=== PATIENT | male | born 1960 | race Caucasian/White ===

== ENCOUNTER 2016-11-02 20:55 | Emergency (ER) | payer OTHER ==
[~2016-11-02] VITALS: Ht 175.3 cm; Wt 79.1 kg
[~2016-11-02 20:55] MED LIST: CYAN500T PO; DIVA500T59 PO; MORP1CAP PO; MULT-506 PO; OMEP40CA PO; OXYC1TAB3 PO; PREG100C PO; VORT20TA PO
[2016-11-02 20:58] VITALS: TEMP 36.8; Ht 175.3 cm; Wt 79.1 kg
[2016-11-02] MEDS ORDERED: SODIUM CHLORIDE 0.9% 1000ML 1,000 ML IV ONE (21:47)
[2016-11-02] MEDS ORDERED: SODIUM CHLORIDE 0.9% 1000ML 1,000 ML IV STA (21:47)
[2016-11-02] MEDS ORDERED: HYDROmorphone INJ 1 MG/ML SYR IV STA ×2 (21:47→23:21)
[2016-11-02] MEDS ORDERED: ONDANSETRON INJ 2 MG/ML 2 ML VIAL IV STA (21:47)
--- NOTE | 2016-11-02 21:54 | EMERGENCY ROOM VISIT NOTE ---
History Report prepared by Dashawn: Lawrence Vasquez Under the Supervision of: Dr. Azael Alfredo M.D. First contact with patient: 21:32 Chief Complaint: CHEST PAIN Stated Complaint: CHEST PAIN Nursing Triage Summary: Triage Notes: chest pain in mid chest and down both arms since 8pm. History of Present Illness The patient is a 56 year old male who presents to the Emergency Room with complaints of persistent chest pain that started around an hour and a half ago. He says that he was just tinkering around in his garage when the pain came on. He says there was nothing running to cause smoke or gas in the area. The patient states that he has also been a bit short of breath, and it hurts to take a deep breath. He adds that he has been nauseous with some vomiting, abdominal pain, and headaches. The patient notes that he has had chest pain like this before, and has been worked up in the past, and has been checked out with no heart problems. The patient denies any anxiety issues or mental health issues currently. He also denies any fevers, chills, new back pain, or leg swelling. He adds that he blacked out and fell down a flight of stairs a week ago, and was taken by ambulance to the [place] [facility]. The patient says that he hurt his ankle and leg, but did not hurt his chest. The patient takes Morphine 3 times per days for chronic back pain. He has had stress tests done in the past. The patient does not take any blood thinners, and he has no history of blood clots. Source of History: patient Onset: An hour and a half ago Position: chest Timing: other (persistent) Associated Symptoms: + headache, + SOB, + nausea, + vomiting, + abdominal pain, No fevers, No chills, No back pain (no new) Note: Associated symptoms: Denies leg swelling. Review of Systems See HPI for pertinent positives & negatives. A total of 10 systems reviewed and were otherwise negative. Past Medical & Surgical Medical Problems: (1) Back pain (2) Chest pain radiating to arm (3) Foot fracture, right (4) Narcotic overdose (5) Neck pain Old medical records were reviewed. Nurse's notes were reviewed and I agree with. Family History Cancer Diabetes mellitus FH: heart disease FHx: lung disease Hypertension Social History Smoking Status: Never Smoker Alcohol Use: occasionally Drug Use: none Marital Status: single Occupation Status: disabled Current/Historical Medications Scheduled Cyanocobalamin (Vitamin B-12), 500 MCG PO DAILY Divalproex Sodium (Depakote), 500 MG PO DAILY Meloxicam (Mobic), 7.5 MG PO DAILY Morphine Sulfate (Elza Ext Rel), 100 MG PO Q6H Omeprazole (Prilosec), 40 MG PO DAILY Pregabalin (Lyrica), 100 MG PO TID Vortioxetine HBr (Brintellix), 20 MG PO DAILY Scheduled PRN Clonazepam (Klonopin), 0.5 MG PO BID PRN for Anxiety Oxycodone Ir (Roxicodone Ir), 10 MG PO TID PRN for Pain Allergies Coded Allergies: Gabapentin (Unverified Allergy, Mild, 12/21/15) Oxaprozin (Unverified Allergy, Mild, 12/21/15) Uncoded Allergies: DEXAPRO (Allergy, Mild, 09/10/06) Physical Exam Vital Signs Date Time Temp Pulse Resp B/P (MAP) Pulse Ox O2 Delivery O2 Flow Rate FiO2 11/02/16 23:52 60 18 163/108 98 11/02/16 22:00 162/110 11/02/16 21:59 169/114 11/02/16 21:55 65 15 99 11/02/16 21:53 64 20 98 Room Air 11/02/16 21:29 65 11/02/16 21:12 97 Room Air 11/02/16 20:58 36.8 64 20 177/103 94 Room Air Physical Exam General: Well developed well nourished mildly uncomfortable appearing middle aged male in no acute distress, breathing comfortably on room air. Normal speech HEENT: Normal cephalic atraumatic. Pupils are equal round and reactive to light. Extraocular movements are intact. Oropharynx is pink with moist mucous membranes. No swelling of the mouth lips or tongue. Neck: Supple with a midline trachea. No meningeal signs or stiffness, no JVD or bruits. No Stridor. Chest: Chest is reproducibly tender. Clear to auscultation bilaterally. No wheezes or rhonchi. No increased work of breathing. Heart: regular rate and rhythm. Abdomen: Reproducibly tender. Soft nondistended without rebound guarding or rigidity. Extremities: No cyanosis clubbing or edema. No calf tenderness or assymetry Spine/Back. Non tender to palpation. No CVA tenderness Skin: Good turgor without rashes. Neurologic exam: Cranial nerves two through 12 are intact. Motor and sensation are intact and symmetrical throughout. Medical Decision & Procedures ER Provider Diagnostic Interpretation: X-ray results as stated below per interpretation by me and the radiologist: CHEST ONE VIEW PORTABLE HISTORY: 56 years-old Male acute chest pain COMPARISON: Chest radiograph 01/12/2016 TECHNIQUE: Portable upright AP view of the chest FINDINGS: Cardiomediastinal and hilar silhouettes are within normal limits. There is no pneumothorax, pleural effusion or focal airspace consolidation. The bones are grossly intact. IMPRESSION: No acute cardiopulmonary process. The above report was generated using voice recognition software. It may contain grammatical, syntax or spelling errors. Electronically signed by: Tito Velasquez M.D. 11/02/2016 10:03 PM Dictated Date/Time: 11/02/2016 10:02 PM Laboratory Results 11/02/16 21:12 Red Blood Count 4.47, Mean Corpuscular Volume 85.0, Mean Corpuscular Hemoglobin 28.4, Mean Corpuscular Hemoglobin Concent 33.4, Mean Platelet Volume 11.1, Neutrophils (%) (Auto) 59.1, Lymphocytes (%) (Auto) 30.7, Monocytes (%) (Auto) 6.9, Eosinophils (%) (Auto) 2.7, Basophils (%) (Auto) 0.4, Neutrophils # (Auto) 3.33, Lymphocytes # (Auto) 1.73, Monocytes # (Auto) 0.39, Eosinophils # (Auto) 0.15, Basophils # (Auto) 0.02 11/02/16 21:12 Test 11/02/16 21:12 11/02/16 21:53 White Blood Count 5.63 K/uL (4.8-10.8) Red Blood Count 4.47 M/uL (4.7-6.1) Hemoglobin 12.7 g/dL (14.0-18.0) Hematocrit 38.0 % (42-52) Mean Corpuscular Volume 85.0 fL (80-100) Mean Corpuscular Hemoglobin 28.4 pg (25-34) Mean Corpuscular Hemoglobin Concent 33.4 g/dl (32-36) Platelet Count 207 K/uL (130-400) Mean Platelet Volume 11.1 fL (7.4-10.4) Neutrophils (%) (Auto) 59.1 % Lymphocytes (%) (Auto) 30.7 % Monocytes (%) (Auto) 6.9 % Eosinophils (%) (Auto) 2.7 % Basophils (%) (Auto) 0.4 % Neutrophils # (Auto) 3.33 K/uL (1.4-6.5) Lymphocytes # (Auto) 1.73 K/uL (1.2-3.4) Monocytes # (Auto) 0.39 K/uL (0.11-0.59) Eosinophils # (Auto) 0.15 K/uL (0-0.5) Basophils # (Auto) 0.02 K/uL (0-0.2) RDW Standard Deviation 42.4 fL (36.4-46.3) RDW Coefficient of Variation 13.8 % (11.5-14.5) Immature Granulocyte % (Auto) 0.2 % Immature Granulocyte # (Auto) 0.01 K/uL (0.00-0.02) Anion Gap 4.0 mmol/L (3-11) Est Creatinine Clear Calc Drug Dose 84.5 ml/min Estimated GFR () 98.5 Estimated GFR (Non- 84.9 BUN/Creatinine Ratio 8.8 (10-20) Calcium Level 8.5 mg/dl (8.5-10.1) Total Bilirubin 0.2 mg/dl (0.2-1) Direct Bilirubin < 0.1 mg/dl (0-0.2) Aspartate Amino Transf (AST/SGOT) 12 U/L (15-37) Alanine Aminotransferase (ALT/SGPT) 14 U/L (12-78) Alkaline Phosphatase 59 U/L (45-117) Total Creatine Kinase 79 U/L (39-308) Creatine Kinase MB 0.7 ng/ml (0.5-3.6) Creatine Kinase MB Ratio 0.9 (0-3.0) Troponin I < 0.015 ng/ml (0-0.045) Total Protein 7.1 gm/dl (6.4-8.2) Albumin 3.6 gm/dl (3.4-5.0) Lipase 222 U/L (73-393) Bedside Troponin I < 0.030 ng/ml (0-0.045) Laboratory studies as stated above per my review. Medications Administered Medications (Trade) Dose Ordered Sig/Topher Route Start Time Stop Time Status Last Admin Dose Admin Sodium Chloride 1,000 ml @ 999 mls/hr Q1H1M STAT IV 11/02/16 21:47 11/02/16 22:47 DC 11/02/16 22:00 999 MLS/HR Sodium Chloride 1,000 ml @ 150 mls/hr Q6H40M ONCE IV 11/02/16 21:47 11/03/16 04:26 11/02/16 22:09 150 MLS/HR Ondansetron HCl (Zofran Inj) 4 mg NOW STAT IV 11/02/16 21:47 11/02/16 21:49 DC 11/02/16 22:00 4 MG Hydromorphone HCl (Dilaudid Inj) 1 mg NOW STAT IV 11/02/16 21:47 11/02/16 21:49 DC 11/02/16 22:02 1 MG Hydromorphone HCl (Dilaudid Inj) 1 mg NOW STAT IV 11/02/16 23:21 11/02/16 23:23 DC 11/02/16 23:32 1 MG ECG Indication: chest pain Rate (beats per minute): 70 Rhythm: normal sinus Findings: no acute ischemic change, no ectopy, other (early repolarization) Comparison ECG Date: compared to January 12 2016, rate has increased ED Course 2140: Past medical records reviewed. The patient was evaluated in room A10, and a complete history and physical examination were performed. 2146: Ordered Dilaudid Inj 1 mg IV, Zofran Inj 4 mg IV, NSS 1000 ml @ 150 mls/ hr IV, NSS 1000 ml @ 999 mls/hr IV. 2: I reevaluated the patient and he is doing okay. He has had this pain for years but he wants another injection. I do not think his pain is cardiac. The patient verbally expressed understanding and agreement of the treatment plan. The patient will be discharged. 5: Ordered Dilaudid Inj 1 mg IV. Medical Decision Differentials include, but are not limited to; acute coronary syndrome, arrhythmia, pneumothorax, CHF, acute exacerbation of chronic pain. This patient comes in as described above. He was placed in room A 10. He's been having chest pain. I talked to him at length. He's been having chest pain off and on for years like this. He has some chronic pain issues. He tells me is a multiple stress testing cast which been unremarkable and never actually had cardiac disease. He is on high dosages of morphine at home. He is here from [place] . has not driving he has a friend who is driving. EKG was obtained does not suggest acute coronary syndrome or arrhythmia. He has no acute electrode metabolic abdomen was initially given Dilaudid 1 mg IV and Zofran 4 mg IV and seemed much more comfortable. He was still complaining that it hurts and was given additional dose of IV Dilaudid. Chest x-ray does not suggest congestive heart failure, pneumonia or pneumothorax. Cardiac enzymes are not elevated. I talked to him at length again this is been going on for years this feels no different from previous pain episodes. I do not think this is likely acute cardiac event and I do think he can be discharged home and follow up with his regular doctor. His blood pressure was moderately elevated which is most likely from pain but I told him follow-up with his regular doctor and have this rechecked when he is not having pain. He should return if: increasing pain, worsening of symptoms, fever or chills, any new problems or concerns. He is happy the plan and discharged to home. Medication Reconcilliation Current Medication List: was personally reviewed by me Blood Pressure Screening Patient's blood pressure: Elevated blood pressure Blood pressure disposition: Referred to PCP Impression Primary Impression: Precordial chest pain Scribe Attestation The scribe's documentation has been prepared under my direction and personally reviewed by me in its entirety. I confirm that the note above accurately reflects all work, treatment, procedures, and medical decision making performed by me. Departure Information Dispostion Home / Self-Care Referrals Jonas Cook MD (PCP) Patient Instructions My [facility] Additional Instructions Rest. Drink plenty of fluids. Return if: Increasing pain, worsening symptoms, shortness of breath, fever chills, any new problems or concerns. Follow-up with your doctor this week for recheck or return to ER any point if symptoms worsen
[2016-11-02 21:55] LABS: BASO % 0.4 %; BASO ABS # 0.02 K/uL (0-0.2); COMPLETE YES; EOS % 2.7 %; IG% 0.2 %; LYMPH % 30.7 %; LYMPH ABS # 1.73 K/uL (1.2-3.4); MEAN CORPUSCULAR HEMOGLOBIN 28.4 pg (25-34); MEAN CORPUSCULAR HGB CONC 33.4 g/dl (32-36); MEAN PLATELET VOLUME 11.1 fL (7.4-10.4); MONO % 6.9 %; NEUT % 59.1 %; PLATELET COUNT 207 K/uL (130-400); RED BLOOD COUNT 4.47 M/uL (4.7-6.1); WHITE BLOOD COUNT 5.63 K/uL (4.8-10.8)
[2016-11-02] MEDS ORDERED: OMEP40CA41 PO (21:56)
[2016-11-02] MEDS ORDERED: VORT20TA PO (21:56)
--- NOTE | 2016-11-02 22:04 | DIAGNOSTIC IMAGING REPORT ---
CHEST ONE VIEW PORTABLE HISTORY: 56 years-old Male acute chest pain COMPARISON: Chest radiograph 01/12/2016 TECHNIQUE: Portable upright AP view of the chest FINDINGS: Cardiomediastinal and hilar silhouettes are within normal limits. There is no pneumothorax, pleural effusion or focal airspace consolidation. The bones are grossly intact. IMPRESSION: No acute cardiopulmonary process. The above report was generated using voice recognition software. It may contain grammatical, syntax or spelling errors. Electronically signed by: Tito Velasquez M.D. 11/02/2016 10:03 PM Dictated Date/Time: 11/02/2016 10:02 PM
[2016-11-02 22:09] LABS: ALT/SGPT 14 U/L (12-78); BLOOD UREA NITROGEN 9 mg/dl (7-18); BUN/CREATININE RATIO 8.8 (10-20); CALCIUM 8.5 mg/dl (8.5-10.1); CARBON DIOXIDE 30 mmol/L (21-32); CHLORIDE 110 mmol/L (98-107); GLUCOSE 111 mg/dl (70-99); POTASSIUM 3.2 mmol/L (3.5-5.1); SODIUM 144 mmol/L (136-145)
[2016-11-02 22:15] LABS: ALKALINE PHOSPHATASE 59 U/L (45-117); AST/SGOT 12 U/L (15-37); CKMB/CK RATIO 0.9 (0-3.0)
[2016-11-02] MEDS ORDERED: CLON0.5T3 PO (22:53)
[2016-11-02] MEDS ORDERED: MELO7.5T5 PO (22:53)
[2016-11-02 23:52] VITALS: BP 163/108; PULSE 60; O2SAT 98
== END 2016-11-02 23:35 | disposition home or self-care (01) ==
LOC: C.EDB 20:56 → C.EDA 23:35
DX: R07.2 Precordial pain (principal); M79.601 Pain in right arm; M79.602 Pain in left arm

== ENCOUNTER → 2016-11-11 | Outpatient (CLI) | payer OTHER ==
[~2016-11-11] MED LIST changes: +CLON0.5T3 PO; +MELO7.5T5 PO; -MULT-506 PO; -OMEP40CA PO; +OMEP40CA41 PO
[2016-11-11 18:02] LABS: COMPLETE YES; HEMATOCRIT 38.9 % (42-52); IG% 0.2 %; LYMPH % 10.1 %; LYMPH ABS # 0.61 K/uL (1.2-3.4); MEAN CELL VOLUME 86.6 fL (80-100); MEAN CORPUSCULAR HEMOGLOBIN 27.8 pg (25-34); MEAN CORPUSCULAR HGB CONC 32.1 g/dl (32-36); MEAN PLATELET VOLUME 11.4 fL (7.4-10.4); MONO % 5.8 %; NEUT % 83.9 %; PLATELET COUNT 283 K/uL (130-400); RED BLOOD COUNT 4.49 M/uL (4.7-6.1); WHITE BLOOD COUNT 6.03 K/uL (4.8-10.8)
[2016-11-11 18:10] LABS: ALT/SGPT 16 U/L (12-78); AST/SGOT 15 U/L (15-37); BLOOD UREA NITROGEN 16 mg/dl (7-18); BUN/CREATININE RATIO 13.4 (10-20); CALCIUM 8.7 mg/dl (8.5-10.1); CARBON DIOXIDE 25 mmol/L (21-32); CHLORIDE 109 mmol/L (98-107); GLUCOSE 189 mg/dl (70-99); POTASSIUM 3.6 mmol/L (3.5-5.1); SODIUM 138 mmol/L (136-145)
[2016-11-11 18:13] LABS: ALB/GLOB RATIO 1.1 (0.9-2); ALKALINE PHOSPHATASE 68 U/L (45-117); CHOLESTEROL 143 mg/dl (0-200); CHOLESTEROL/HDL RATIO 4.1; HDL CHOLESTEROL 35 mg/dl; LDL CHOLESTEROL CALCULATED 95 mg/dl; TRIGLYCERIDES 65 mg/dl (0-150); VERY LOW DENSITY LIPOPROT CALC 13 mg/dl
[2016-11-12 14:04] LABS: ESTIMATED AVERAGE GLUCOSE 111 mg/dl; HA1C FLAG Normal (Normal)
--- NOTE | 2016-11-24 14:13 | CODING QUERY MEDICAL NECESSITY ---
SUPPORTING DIAGNOSIS NEEDED A supporting diagnosis is required for the test/procedure performed on this patient in order for us to be reimbursed by the patient's insurance. Please provide a supporting diagnosis for the following test/procedure listed below next to the test name along with your signature. *If there is no additional diagnosis for this patient that would support the following test/procedure please document that below next to the test/procedure. Test(s)/Procedure(s) that require a supporting diagnosis: * HEMOGLOBIN A1C DIAGNOSIS: Provider Signature: Date: Thank you Isabella Elena [facility] Information Management Once completed, please kindly fax back to [phone] For questions please call [phone]
== END | disposition home or self-care (01) ==
LOC: C.LABSPEC 11:02
PROVIDERS: ATTEND Family Medicine
DX: I10 Essential (primary) hypertension (principal); F32.9 Major depressive disorder, single episode, unspecified; F41.9 Anxiety disorder, unspecified

== ENCOUNTER 2017-03-15 18:34 | Emergency (ER) | payer OTHER ==
[~2017-03-15] VITALS: Ht 175.3 cm; Wt 76.4 kg
[~2017-03-15 18:34] MED LIST changes: -CLON0.5T3 PO; -CYAN500T PO; -MELO7.5T5 PO; -OMEP40CA41 PO; -PREG100C PO
[2017-03-15 18:37] VITALS: BP 166/102; PULSE 76; TEMP 36.3; O2SAT 100; Ht 175.3 cm; Wt 76.4 kg
[2017-03-15] MEDS ORDERED: VORT1TAB3 PO (18:49)
[2017-03-15] MEDS ORDERED: [UNRECOGNIZED DRUG - CODE] PO (18:49)
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
[2017-03-15] MEDS ORDERED: PREG100C PO (20:32)
[2017-03-15] MEDS ORDERED: CYAN500T PO (20:33)
[2017-03-15] MEDS ORDERED: OMEP40CA41 PO (21:56)
[2017-03-15] MEDS ORDERED: CLON0.5T3 PO (22:53)
[2017-03-15] MEDS ORDERED: MELO7.5T5 PO (22:53)
== END 2017-03-15 18:55 | disposition home or self-care (01) ==
LOC: C.EDB 18:35 → C.EDD 18:55
DX: M54.5 Low back pain (principal); Z80.9 Family history of malignant neoplasm, unspecified; Z83.3 Family history of diabetes mellitus; Z82.49 Family history of ischemic heart disease and other diseases of the circulatory system; Z83.6 Family history of other diseases of the respiratory system; Z79.899 Other long term (current) drug therapy

== ENCOUNTER 2017-03-20 16:40 | Emergency (ER) | payer OTHER ==
[~2017-03-20] VITALS: Ht 175.3 cm; Wt 80.8 kg
[~2017-03-20 16:40] MED LIST changes: +CLON0.5T3 PO; +CYAN500T PO; +MELO7.5T5 PO; -MORP1CAP PO; +OMEP40CA41 PO; +PREG100C PO; +VORT1TAB3 PO; -VORT20TA PO; +[UNRECOGNIZED DRUG - CODE] PO
[2017-03-20 16:46] VITALS: Ht 175.3 cm; Wt 80.8 kg
[2017-03-20] MEDS ORDERED: KETOROLAC TROMETHAMINE 30 MG/ML VIAL IV STA (17:08)
--- NOTE | 2017-03-20 17:18 | EMERGENCY ROOM VISIT NOTE ---
History Report prepared by Dashawn: Carlos Allen Under the Supervision of: Dr. Amarilis Magana D.O. First contact with patient: 16:52 Chief Complaint: CHEST PAIN Stated Complaint: PAIN L ARM AND JAW CHEST PAIN History of Present Illness The patient is a 56 year old male who presents to the Emergency Room with complaints of constant chest pressure starting around 1530 this afternoon while not really doing anything. The patient states that he was having shoulder pain, arm pain, and jaw pain as well. He states that he took aspirin and Klonopin for his anxiety. The patient reports that he got out of the hospital last night after having similar symptoms. He states that he signed himself out of the hospital, and he was unable to see a speeder worker because he wanted to see his daughter. He states that nothing was found while in the hospital. The patient additionally reports that he has had a stress test and a heart catheterization 3 -4 years ago, and it was clear. He states that before these past few days he has never had chest pain like this before. Source of History: patient Onset: 1530 this afternoon Position: chest Quality: pressure Timing: constant Note: Associated symptoms: Arm pain, jaw pain, and shoulder pain. Review of Systems See HPI for pertinent positives & negatives. A total of 10 systems reviewed and were otherwise negative. Past Medical & Surgical Medical Problems: (1) Back pain (2) Chest pain radiating to arm (3) Foot fracture, right (4) Narcotic overdose (5) Neck pain Family History Cancer Diabetes mellitus FH: heart disease FHx: lung disease Hypertension Social History Smoking Status: Never Smoker Alcohol Use: occasionally Drug Use: none Marital Status: single Occupation Status: disabled Current/Historical Medications Scheduled Cyanocobalamin (Vitamin B-12), 500 MCG PO DAILY Divalproex Sodium (Depakote), 500 MG PO DAILY Meloxicam (Mobic), 7.5 MG PO DAILY Morphine Sulfate (Morphine Sulfate Cr), 90 MG PO Q12 Omeprazole (Prilosec), 40 MG PO DAILY Pregabalin (Lyrica), 100 MG PO TID Vortioxetine HBr (Trintellix), 20 MG PO DAILY Scheduled PRN Clonazepam (Klonopin), 0.5 MG PO BID PRN for Anxiety Oxycodone Ir (Roxicodone Ir), 10 MG PO QID PRN for Pain Allergies Coded Allergies: Gabapentin (Unverified Allergy, Mild, 03/15/17) Oxaprozin (Unverified Allergy, Mild, 03/15/17) Uncoded Allergies: DEXAPRO (Allergy, Mild, 09/10/06) Physical Exam Vital Signs Date Time Temp Pulse Resp B/P (MAP) Pulse Ox O2 Delivery O2 Flow Rate FiO2 03/20/17 18:02 37.1 84 16 117/84 99 03/20/17 17:40 84 16 99 03/20/17 17:34 86 03/20/17 17:31 117/84 03/20/17 17:23 128/81 03/20/17 17:04 81 20 128/81 99 Room Air 03/20/17 16:55 Room Air 03/20/17 16:46 37.9 90 20 126/88 96 Room Air Physical Exam HEENT: Head - normocephalic and atraumatic Pupils are equal, round, and reactive to light. Extraocular eye muscles are intact, and sclera are anicteric. Nose - moist nasal mucosa without discharge. Mouth - moist buccal mucosa. Oropharynx is nonerythematous and there is no tonsillar exudate or edema noted. Neck: Supple; no JVD, nuchal rigidity, cervical lymphadenopathy, or auscultated bruits. Heart: Regular rate and rhythm. There is a normal S1 and S2 with no murmurs, clicks, or gallops appreciated. Lungs: Clear to auscultation bilaterally with no wheezes, rales, or rhonchi. Abdomen: Soft, completely nontender, nondistended, with good bowel sounds. There are no palpable pulsatile masses or hepatosplenomegaly. There is no guarding, rigidity, or rebound noted. Extremities: No evidence of cyanosis, clubbing, or edema. There are easily palpable peripheral pulses. Skin: warm and dry with good turgor and no rashes. Medical Decision & Procedures Laboratory Results Test 03/20/17 17:20 Bedside Troponin I < 0.030 ng/ml (0-0.045) Laboratory results per my review. Medications Administered Medications (Trade) Dose Ordered Sig/Topher Route Start Time Stop Time Status Last Admin Dose Admin Ketorolac Tromethamine (Toradol Inj) 30 mg NOW STAT IV 03/20/17 17:08 03/20/17 17:10 DC 03/20/17 17:35 30 MG Procedure Toradol IV ECG Indication: chest pain Rate (beats per minute): 83 Rhythm: normal sinus Findings: no acute ischemic change, no ectopy ED Course 1651: Past medical records reviewed. The patient was evaluated in room B12. A complete history and physical exam was performed. 170: Toradol 30mg IV. 1730: I reviewed the patient's past ER visits from [facility] and admission for chest pain rule out 174: I reviewed cardiac catheterization from December 2012. His ejection fraction was 60% and he had no coronary disease at all. 175: I reevaluated the patient, and he was upset and trying to rip out his IV. He doesn't understand why we won't give him morphine like they did at [place]. I advised him to follow up with his PCP. Medical Decision The patient is a 56 year old male who presents to the ED with chest pain. Differential diagnosis includes cardiac ischemia, GERD, costochondritis, and pleurisy Lab results: Troponin was negative This is a 56-year-old male patient who presents to the emergency department with some left-sided chest pain intermittently over the past couple of days. He was an inpatient at [facility] yesterday where he had a chest pain rule out workup completed. He was awaiting cardiology evaluation today when he signed himself out AMA. I was able to obtain the cath report on this patient from 2012 and the inpatient records from [place] from yesterday. The patient became quite upset when I would not provide him any IV morphine for his left-sided chest pain. The patient does have history of chronic pain and follows with pain management for chronic low back pain.. He has MS Contin at home. Medication Reconcilliation Current Medication List: was personally reviewed by me Blood Pressure Screening Patient's blood pressure: Normal blood pressure Impression Primary Impression: Atypical chest pain Scribe Attestation The scribe's documentation has been prepared under my direction and personally reviewed by me in its entirety. I confirm that the note above accurately reflects all work, treatment, procedures, and medical decision making performed by me. Departure Information Dispostion Home / Self-Care Referrals No Doctor, Assigned (PCP) Forms Call Back Authorization, HOME CARE DOCUMENTATION FORM, IMPORTANT VISIT INFORMATION Patient Instructions ED Chest Pain Atypical Unkn Cause, My [facility] Additional Instructions Follow up with your PCP if pain persists.
[2017-03-20] MEDS ORDERED: MORP-88 PO (17:22)
[2017-03-20 18:02] VITALS: BP 117/84; PULSE 84; TEMP 37.1; O2SAT 99
== END 2017-03-20 18:08 | disposition home or self-care (01) ==
LOC: C.EDB 16:40
DX: R07.89 Other chest pain (principal); R68.84 Jaw pain; M79.602 Pain in left arm